=== PATIENT | male | born 1940 | race Caucasian/White ===

== ENCOUNTER 2018-11-12 14:40 | Observation (INO) ==
--- NOTE | 2018-11-12 14:59 | Emergency Department Note ---
Disposition Clinical Impression: Severe anemia, Acquired thrombocytopenia Disposition: Admitted As Inpatient Condition: Fair Forms: ED Satisfaction Letter, Work/School Release Recheck wound or abnormal lab - General Chief Complaint: ED General Medical Stated Complaint: needs blood redrawn Time Seen by Provider: 11/12/18 14:55 Source: patient Mode of arrival: private vehicle Limitations: physical limitation - History of Present Illness HPI Narrative: Patient was seen yesterday for persistent nose bleeding for which she ended up receiving transfusion of platelets as well as nasal packing with TXA on a Rhino Rocket. He tolerated this well and had a repeat lab draw today that showed his hemoglobin to a dropped from 7.1-5.9. His platelets have increased only moderately from 19-27 and his white count is gone from 1.6-1.4. He did have a compressive metabolic panel performed today already as well. His sodium was 1:30, BUN 40, creatinine 0.83 and glucose 259. No other significant abnormalities on his chemistries. He was advised to come to the hospital for in treatment for his lab abnormalities. On arrival here he states he did have the bad nosebleed yesterday denies any other source for blood loss. He has not had any type of GI bleeds and denies bloody or black stools. Reports some generalized weakness but no dizziness or presyncopal complaints. Denies a change in shortness of breath and states he is been short of breath since the and it is no different. Denies any chest pain or palpitations. He is not having abdominal pain or cramping. 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 He is just completed his 6 chemotherapy treatment a week ago on Monday. He has no further treatments planned. He is scheduled for close follow-up and has an MRI scheduled tomorrow at [facility]. He advises that he was told to come to this emergency department to be checked but he expects his treatment to be coordinated through [facility]. Pt Subjective Complaint: abnormal lab(s) Initial Visit (ago): hour(s) Symptoms Since Prior Visit: no new symptoms Context: called for abnormal lab result Associated symptoms: malaise - Related Data Home Medications Medication Instructions Recorded Confirmed Albuterol Sulfate [Proair Hfa] 1 puff IH PRN PRN 07/14/18 11/11/18 Allopurinol [Zyloprim] 300 mg PO DAILY 07/14/18 11/11/18 Ascorbic Acid [Vitamin C] 500 mg PO BID 07/14/18 11/11/18 Fenofibrate 60 mg PO DAILY 07/14/18 11/11/18 Fexofenadine HCl 60 mg PO BID 07/14/18 11/11/18 Fluticasone/Salmeterol [Advair 1 each IH BID 07/14/18 11/11/18 250-50 Diskus] GlipiZIDE [Glipizide Xl] 5 mg PO QID 07/14/18 11/11/18 Insulin Glargine,Hum.rec.anlog 100 unit SQ DAILY 07/14/18 11/11/18 [Basaglar Kwikpen U-100] Lisinopril [Zestril] 5 mg PO DAILY 07/14/18 11/11/18 Allergies Allergy/AdvReac Type Severity Reaction Status Date / Time lecithin, soy Allergy Gastrointestinal Unverified 11/12/18 15:28 Upset Sulfa (Sulfonamide Allergy Seizure Verified 11/12/18 15:28 Antibiotics) All systems ED: reviewed and negative except as stated. Past Medical History - Past Medical History Attestation: Yes The following information was validated with the patient. Source: patient, old records reviewed, nursing notes reviewed Medical history: Reports: asthma, cancer (Non-Hodgkin's lymphoma), cirrhosis, diabetes, hypertension, liver disease, other Surgical history: Reports: appendectomy, cholecystectomy Psychiatric history: Reports: no psych history - Social History Smoking Status: Never smoker Smokeless Tobacco Status: No Alcohol use: Reports: none Drug use: Reports: none Physical Exam - General Limitations: physical limitation General appearance: alert, in no apparent distress - Head Head exam: atraumatic, normocephalic, normal inspection - Eye Eye exam: Present: normal appearance, PERRL, EOMI - ENT ENT exam: normal exam, normal oropharynx, mucous membranes moist, other (There is no evidence for clot or blood in the nose.) - Neck Neck exam: Present: normal inspection, full ROM, trachea midline - Chest Chest inspection: Present: normal inspection, symmetric chest wall rise - Respiratory Respiratory exam: Present: normal lung sounds bilaterally. Absent: respiratory distress, wheezes, accessory muscle use - Cardiovascular Cardiovascular exam: Present: regular rate, normal rhythm, normal heart sounds - Abdominal Exam Abdominal exam: Present: soft, Non-Tender, normal bowel sounds. Absent: tenderness, distention, guarding, rebound, rigidity - Extremities Exam Extremities exam: Present: normal inspection, full ROM, normal capillary refill. Absent: tenderness, pedal edema - Expanded Lower Extremity Exam Neurovascular/Tendon exam: Present: normal capillary refill. Absent: motor deficit, sensory deficit, tendon deficit Gait: observed and normal - Back Exam Back exam: Present: normal inspection, full ROM. Absent: tenderness - Neurological Exam Neurological exam: Present: alert, oriented X3, CN II-XII intact - Psychiatric Psychiatric exam: Present: normal affect, normal mood - Skin Skin exam: Present: warm, dry, intact, pallor. Absent: diaphoresis Course Course Narrative: 1510: I have contacted to the [facility] transfer line. They reviewed the recent call history and he was advised by the nurse practitioner for the oncology service to "go to his local emergency department". They will contact one of his oncologist to help coordinate his treatment. The patient does not wish to be transferred there would like to be transfused blood products here if possible. He is insistent on the amount and type of blood products to be coordinated by [facility]. 1540: Care is discussed with the patient's oncologist at [facility]. He recommends he states here he received 2 units of packed red blood cells and a sixpack of platelets. He states they will call later this week to check in on him and coordinate his further treatment and blood tests. 1545: Patient's presentation and history are discussed with Dr. Topete. He is agreeable with observing the patient for transfusions. Verbal orders have been obtained for this purpose. Vital Signs Temperature 97.7 F 11/12/18 14:50 Pulse Rate 113 11/12/18 14:50 Respiratory Rate 18 11/12/18 14:50 Blood Pressure 86/49 11/12/18 14:50 O2 Sat by Pulse Oximetry 93 11/12/18 14:50 Temperature 97.7 F 11/12/18 14:50 Pulse Rate 113 11/12/18 14:50 Respiratory Rate 18 11/12/18 14:50 Blood Pressure 86/49 11/12/18 14:50 O2 Sat by Pulse Oximetry 93 11/12/18 14:50 Oxygen Delivery Oxygen Delivery Room Air Recheck wound or abnormal lab - Medical Records Medical records reviewed: Yes I reviewed the patient's medical records. - Lab Data Lab results reviewed: Yes I reviewed the patient's lab results. Result diagrams: 11/12/18 15:21 Lab Results 11/12/18 Range/Units 15:21 WBC 1.4 L (4.3-11.1) K/mcL RBC 1.65 L (4.19-5.50) M/mcL Hgb 5.6 L* (12.9-16.9) g/dL Hct 16.4 L (37.5-50.1) % MCV 99.4 (83.0-100.0) fL MCH 33.9 H (28.0-33.3) pg MCHC 34.1 (31.6-35.5) g/dL RDW 17.4 H (11.5-14.5) % Plt Count 26 L* (140-400) K/mcL MPV 12.6 H (9.4-12.4) fL
[2018-11-12] MEDS ORDERED: 0.9 % Sodium Chloride 1,000 ML IVC SCH (15:15)
[2018-11-12 15:30] LABS: Hematocrit 16.4 % (37.5-50.1); Lymphocytes # 0.3 K/mcL (0.6-4.6); Mean Corpuscular HGB Conc 34.1 g/dL (31.6-35.5); Mean Corpuscular Hemoglobin 33.9 pg (28.0-33.3); Mean Corpuscular Volume 99.4 fL (83.0-100.0); Mean Platelet Volume 12.6 fL (9.4-12.4); Monocytes # 0.3 K/mcL (0.0-1.3); Red Blood Count 1.65 M/mcL (4.19-5.50); Red Cell Distribution Width 17.4 % (11.5-14.5)
[2018-11-12 15:32] LABS: Hemoglobin 5.6 g/dL (12.9-16.9); Platelet Count 26 K/mcL (140-400)
[2018-11-12 16:30] LABS: Anisocytosis 1+ (Not Present); Hypochromasia Present (Not Present); Neutrophils # 0.8 K/mcL (1.6-8.9); Platelet Estimate Marked Decrease (Normal); Toxic Granulation Present (Not Present); Toxic Vacuolation Present (Not Present)
[2018-11-12 16:31] LABS: Dohle Bodies Present (Not Present)
[2018-11-12] MEDS ORDERED: *HR* Dextrose 50 % in Water (Vial) 50 ML VIAL IVP PRN (18:05)
[2018-11-12] MEDS ORDERED: Ondansetron 4 MG/2 ML VIAL IVP PRN (18:05)
[2018-11-12] MEDS ORDERED: MOM Conc 10 ML UD.LIQ PO PRN (18:05)
[2018-11-12] MEDS ORDERED: D5% in Water 1,000 ML IVC PRN (18:05)
[2018-11-12] MEDS ORDERED: Naloxone 0.4 MG/ML INJ IVP PRN (18:05)
[2018-11-12] MEDS ORDERED: Mag Hydrox/Al Hydrox/Simeth 30 ML UDC PO PRN (18:05)
[2018-11-12] MEDS ORDERED: Dextrose Gel 15 GM/37.5 ML TUBE PO PRN ×2 (18:05)
[2018-11-12] MEDS: 0.9 % Sodium Chloride 1,000 ML IVC SCH (19:03)
[2018-11-13] MEDS: 0.9 % Sodium Chloride 1,000 ML IVC SCH ×2 (04:56→16:03)
[2018-11-13 06:55] LABS: Hematocrit 18.4 % (37.5-50.1); Hemoglobin 6.2 g/dL (12.9-16.9); Mean Corpuscular HGB Conc 33.7 g/dL (31.6-35.5); Mean Corpuscular Hemoglobin 33.7 pg (28.0-33.3); Mean Platelet Volume 13.2 fL (9.4-12.4); Red Blood Count 1.84 M/mcL (4.19-5.50); Red Cell Distribution Width 17.2 % (11.5-14.5)
[2018-11-13 07:18] LABS: Platelet Count 25 K/mcL (140-400)
[2018-11-13 08:06] LABS: Lymphocytes # 0.5 K/mcL (0.6-4.6); Monocytes # 0.1 K/mcL (0.0-1.3); Neutrophils # 0.8 K/mcL (1.6-8.9)
[2018-11-13 08:07] LABS: Anisocytosis 1+ (Not Present); Platelet Estimate Marked Decrease (Normal); Toxic Vacuolation Present (Not Present)
[2018-11-13 08:08] LABS: Dohle Bodies Present (Not Present); Toxic Granulation Present (Not Present)
[2018-11-13] MEDS: Insulin LISPRO 300 UNITS/3 ML VIAL SQ SCH ×4 (08:30→17:49)
--- NOTE | 2018-11-13 10:58 | Internal Med History&Physical ---
Date of Encounter: 11/13/18 Time of Encounter: 10:05 Assessment and Plan (1) Pancytopenia due to antineoplastic chemotherapy Current visit: Yes Status: Acute He received 1 unit packed red blood cells and a sixpack of platelets through emergency room. There has been no improvement in his platelet level. He remains leukopenic and now has bandemia. I spoke with his steamer gum candy at [facility] who agrees for transfer there. (2) Non Hodgkin's lymphoma Current visit: Yes Status: Acute As per oncologist. Qualifiers: Non-Hodgkin lymphoma type: unspecified type Lymphoma site: unspecified region Qualified Code(s): C85.90 - Non-Hodgkin lymphoma, unspecified, unspecified site Internal Medicine - H&P: HPI Chief complaint: Pancytopenia, weakness Admitted From: Emergency Dept Plans for Post Hospital Care: Home History of present illness: Mr. Villarreal is a 78 year old male who was directed to come to emergency room by his [facility] oncologist to have repeat labs and possibly receives blood transfusion. Previous blood draw within the last 24 hours had shown significant pancytopenia. Labs in emergency room confirmed pancytopenia with hemoglobin 5.6, WBC 1.4, and platelet count 26,000. He was admitted to observation bed for blood transfusion and ongoing care needs. He reports being diagnosed with non-Hodgkin's lymphoma fall 2017. He has received chemotherapy with last treatment during his hospitalization ending 11/03/2018 at [facility]. He had epistaxis requiring emergency room treatment November 11 including platelet transfusion. Epistaxis has not recurred. He denies other malignancies but was diagnosed with ITP in the mid 1990s. He received Vincristine which caused peripheral neuropathy. He also received steroids and Gamimmune. Past Med Surg Social Fam HX - Past Medical History Medical history: asthma, cancer (Non-Hodgkin's lymphoma), cirrhosis, diabetes, hypertension, liver disease, other Additional medical history: non hodgikns lymphomia, ITP Psychiatric history: no psych history - Past Surgical History Surgical History: appendectomy, cholecystectomy Additional surgical history: teeth. LIVER BIOPSY. picc line for chemo - Social History Smoking Status: Never smoker Smokeless Tobacco Status: No Alcohol use: none Drug use: none Internal Medicine - H&P: Meds Albuterol Sulfate [Proair Hfa] 1 puff IH PRN PRN 07/14/18 [History] Allopurinol [Zyloprim] 300 mg PO DAILY 12/29/18 [History] Ascorbic Acid [Vitamin C] 500 mg PO BID 07/14/18 [History] Fenofibrate 60 mg PO DAILY 07/14/18 [History] Fexofenadine HCl 60 mg PO BID 07/14/18 [History] Fluticasone/Salmeterol [Advair 250-50 Diskus] 1 each IH BID 07/14/18 [History] GlipiZIDE [Glipizide Xl] 5 mg PO QID 07/14/18 [History] Insulin Glargine,Hum.rec.anlog [Basaglar Kwikpen U-100] 100 unit SQ DAILY 07/14/18 [History] Lisinopril [Zestril] 5 mg PO DAILY 07/14/18 [History] Allergy/AdvReac Type Severity Reaction Status Date / Time lecithin, soy Allergy Gastrointestinal Unverified 11/12/18 15:28 Upset Sulfa (Sulfonamide Allergy Seizure Verified 11/12/18 15:28 Antibiotics) All Systems PM: A 10-system review of systems was performed and is negative for pertinent findings except as documented above in the HPI. Review of systems: Gen.: He states his weight has decreased approximately 35 pounds in the past year Cardiovascular: He has history of hypertension but denies DE heart failure angina DVT or pulmonary embolus Respiratory: He smoked briefly during high school. He denies chronic lung disease and does not use home oxygen. He has had negative TORITO workup. He reports narcolepsy but does not presently take medication for this. GI: He had cholecystectomy several years ago. He has diagnosis of cirrhosis but denies other disorders of his liver or exocrine pancreas : He has had multiple kidney stones with most recent one several years ago. He denies other kidney bladder prostate disorders. Neurologic: He has peripheral neuropathy as per history of present illness. He states he was told he possibly had a mild stroke earlier this year but has no residual neurologic deficits. He denies seizures. Endocrine: He was diagnosed with DM 2 in 1998. Hemoglobin A1c was 6.0% on 09/13/2018. He has hypothyroidism but denies hyperlipidemia Hematology/oncology: As per history of present illness Psychiatric: He had suicidal ideations at age 17. He denies ongoing mental health diagnoses. [place] skeletal: He has history of gout. He denies other bone joint or muscle d isorders. - Constitutional Vitals: Temp Pulse Resp BP Pulse Ox 98.5 F 94 16 90/56 96 11/13/18 07:39 11/13/18 07:39 11/13/18 07:39 11/13/18 07:39 11/13/18 07:39 Exam: Gen.: He is a well-developed well-nourished male who appears pale but in no acute distress HEENT: Head is atraumatic and normocephalic. Eyes: EOMI. There is no scleral icterus. Mouth: Mucosa is moist. Neck: There is no thyromegaly or adenopathy noted. Heart: Regular with a 2/6 systolic murmur heard at the left sternal border radiating toward the axilla. Rate is approximately 104/m. Lungs: No wheezes or crackles are heard. Abdomen: G-tube is in place in the epigastric area. Abdomen is nontender to palpation. Exam is limited because he is in the seated position. Extremities: He has chronic venous stasis pigmentation changes of his lower legs from the upper calf to his feet. Dorsalis pedis and posttibial pulses are not palpable. 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 Neurologic: Mental status: He is talkative and a good historian. Cranial nerves: Smile is symmetric. Forehead wrinkles bilaterally. Tongue protrudes midline. EOMI. Motor: There is no pronator drift. Cerebellar: Finger to nose is intact bilaterally. Skin: Warm and dry Internal Med - H&P Results - Labs CBC & Chem 7: 11/13/18 06:00 Labs: Short CBC 11/12/18 11/13/18 Range/Units 15:21 06:00 WBC 1.4 L 1.4 L (4.3-11.1) K/mcL Hgb 5.6 L* 6.2 L (12.9-16.9) g/dL Hct 16.4 L 18.4 L (37.5-50.1) % Plt Count 26 L* 25 L* (140-400) K/mcL Neutrophils # 0.8 L 0.8 L (1.6-8.9) K/mcL
--- NOTE | 2018-11-13 11:24 | Discharge Summary ---
Date of Encounter: 11/13/18 Time of Encounter: 10:05 - Discharge Diagnosis (1) Pancytopenia due to antineoplastic chemotherapy Priority: Primary Status: Acute (2) Non Hodgkin's lymphoma Priority: Secondary Status: Acute Qualifiers: Non-Hodgkin lymphoma type: unspecified type Lymphoma site: unspecified region Qualified Code(s): C85.90 - Non-Hodgkin lymphoma, unspecified, unspecified site Hospital course: Mr. Villarreal is a 78 year old male who was directed to come to emergency room by his [facility] oncologist to have repeat labs and possibly receives blood transfusion. Previous blood draw within the last 24 hours had shown significant pancytopenia. Labs in emergency room confirmed pancytopenia with hemoglobin 5.6, WBC 1.4, and platelet count 26,000. He was admitted to observation bed for blood transfusion and ongoing care needs. Initial orders were written by the emergency room physician. I saw him on November 13 and performed the history and physical. Follow-up labs November 13 showed persistent leukopenia with WBC 1.4. There was 12% bandemia. Hemoglobin manav to 6.2 after 1 unit of packed red blood cells transfusion. I discussed his case with his building operator at [facility] and it was agreed he would be transferred to [facility] for ongoing care needs. - Time Spent with Patient Total time spent providing and/or coordinating discharge services: - Discharge Medications Prescriptions: No Action Albuterol Sulfate [Proair Hfa] 1 puff IH PRN PRN PRN Reason: Shortness Of Breath Lisinopril [Zestril] 5 mg PO DAILY GlipiZIDE [Glipizide Xl] 5 mg PO QID Fexofenadine HCl 60 mg PO BID Fenofibrate 60 mg PO DAILY Allopurinol [Zyloprim] 300 mg PO DAILY Fluticasone/Salmeterol [Advair 250-50 Diskus] 1 each IH BID Ascorbic Acid [Vitamin C] 500 mg PO BID Insulin Glargine,Hum.rec.anlog [Torey Johnson U-100] 100 unit SQ DAILY Home Medications: Albuterol Sulfate [Proair Hfa] 1 puff IH PRN PRN 07/14/18 [History] Allopurinol [Zyloprim] 300 mg PO DAILY 07/14/18 [History] Ascorbic Acid [Vitamin C] 500 mg PO BID 12/29/18 [History] Fenofibrate 60 mg PO DAILY 07/14/18 [History] Fexofenadine HCl 60 mg PO BID 07/14/18 [History] Fluticasone/Salmeterol [Advair 250-50 Diskus] 1 each IH BID 07/14/18 [History] GlipiZIDE [Glipizide Xl] 5 mg PO QID 07/14/18 [History] Insulin Glargine,Hum.rec.anlog [Basaglar Kwikpen U-100] 100 unit SQ DAILY 07/14/18 [History] Lisinopril [Zestril] 5 mg PO DAILY 07/14/18 [History] Allergies/Adverse Reactions: Allergy/AdvReac Type Severity Reaction Status Date / Time lecithin, soy Allergy Gastrointestinal Unverified 11/12/18 15:28 Upset Sulfa (Sulfonamide Allergy Seizure Verified 11/12/18 15:28 Antibiotics) Date of admission: 11/12/18 16:06 Primary care physician: Jaime Perkins DO - Constitutional Vitals: Temp Pulse Resp BP Pulse Ox 98.5 F 94 16 90/56 96 11/13/18 07:39 11/13/18 07:39 11/13/18 07:39 11/13/18 07:39 11/13/18 07:39 - Patient Status Disposition: Transfer Other Condition: Fair - Discharge Instructions
[2018-11-13 20:44] VITALS: BP 91/67
== END 2018-11-13 21:35 | disposition other institution (70) ==
LOC: EMEROOPIK 14:40 → INPPIK 14:40
PROVIDERS: ADMIT Internal Medicine; ATTEND Internal Medicine

== ENCOUNTER 2022-01-05 10:35 | Inpatient (IN) ==
[2022-01-05 12:16] LABS: Basophils % 0.3 %; Eosinophils # 0.1 K/mcL (0.0-0.6); Eosinophils % 2.3 %; Hematocrit 26.8 % (37.5-50.1); Hemoglobin 9.1 g/dL (12.9-16.9); Immature Granulocytes % 0.6 % (0-4); Lymphocytes # 0.6 K/mcL (0.6-4.6); Lymphocytes % 16.4 %; Mean Corpuscular Hemoglobin 37.9 pg (28.0-33.3); Mean Corpuscular Volume 111.7 fL (83.0-100.0); Mean Platelet Volume 10.5 fL (9.4-12.4); Monocytes # 0.4 K/mcL (0.0-1.3); Red Cell Distribution Width 15.2 % (11.5-14.5); Segmented Neutrophils % 69.4 %; White Blood Count 3.5 K/mcL (4.3-11.1)
[2022-01-05 12:20] LABS: Neutrophils # 2.4 K/mcL (1.6-8.9); Platelet Count 96 K/mcL (140-400)
[2022-01-05 12:32] LABS: INR 1.2
[2022-01-05 12:32] LABS: Bilirubin,Urine Negative (Negative); Blood,Urine Negative (Negative); Clarity,Urine Clear (Clear); Color,Urine Yellow (Yellow); Glucose,Urine (UA) Normal (Normal); Ketones,Urine Negative (Negative); Leukocyte Esterase,Urine Negative (Negative); Nitrite,Urine Negative (Negative); PH,Urine 5.5 pH Units (5.0-8.0); Protein,Urine Negative (Neg-Trace); Urobilinogen,Urine Normal (Normal)
[2022-01-05 12:40] LABS: Alanine Aminotransferase 14 Units/L (7-52); Albumin/Globulin Ratio 1.2 (1.1-2.2); Alkaline Phosphatase 89 Units/L (34-104); Aspartate Amino Transferase 26 Units/L (13-39); BUN/Creatinine Ratio 21 (6-26); Bilirubin,Total 0.7 mg/dL (0.3-1.0); Blood Urea Nitrogen 18 mg/dL (8-23); Calcium 9.7 mg/dL (8.6-10.3); Carbon Dioxide 24 mEq/L (23-29); Chloride 106 mEq/L (98-107); Globulin 3.4 g/dL (2.4-3.5); Glucose 171 mg/dL (70-105); Osmolality,Calculated 292 (280-300); Potassium 3.8 mEq/L (3.5-5.1); Sodium 138 mEq/L (136-145); Total Protein 7.4 g/dL (6.4-8.9); eGFR For African Americans > 60 (> 60); eGFR For Non-African Americans > 60 (> 60)
[2022-01-05 12:54] LABS: Macrocytosis Present (Not Present); Platelet Estimate Decreased (Normal); Poikilocytosis 1+ (Not Present); Tear Drop Cells 1+ (Not Present)
[2022-01-05] MEDS ORDERED: Ondansetron 4 MG/2 ML VIAL IVP PRN (14:01)
[2022-01-05] MEDS ORDERED: Naloxone 0.4 MG/ML INJ IVP PRN (14:01)
[2022-01-05] MEDS ORDERED: *HR* Dextrose 50 % in Water (Syg) 50 ML SYRINGE IVP PRN (14:01)
[2022-01-05] MEDS ORDERED: D5% in Water 1,000 ML IVC PRN (14:01)
[2022-01-05] MEDS ORDERED: Dextrose Gel 15 GM/37.5 ML TUBE PO PRN ×2 (14:01)
[2022-01-05] MEDS: Insulin LISPRO 300 UNITS/3 ML VIAL SUBQ SCH ×2 (17:33→21:17)
[2022-01-05] MEDS ORDERED: Eucerin Cream 57 GM TUBE TP PRN (19:05)
[2022-01-05] MEDS: Budesonide/Formoterol 160/4.5 1 PUFF INH IH SCH (21:09)
[2022-01-06] MEDS: Levothyroxine 25 MCG TABLET PO SCH (06:10)
[2022-01-06 07:04] LABS: Hemoglobin 8.7 g/dL (12.9-16.9); Mean Corpuscular HGB Conc 34.8 g/dL (31.6-35.5); Mean Corpuscular Hemoglobin 38.3 pg (28.0-33.3); Mean Corpuscular Volume 110.1 fL (83.0-100.0); Mean Platelet Volume 11.5 fL (9.4-12.4); Red Blood Count 2.27 M/mcL (4.19-5.50); Red Cell Distribution Width 14.8 % (11.5-14.5); White Blood Count 2.7 K/mcL (4.3-11.1)
[2022-01-06 07:06] LABS: Platelet Count 95 K/mcL (140-400)
[2022-01-06 07:20] LABS: BUN/Creatinine Ratio 19 (6-26); Blood Urea Nitrogen 15 mg/dL (8-23); Calcium 9.5 mg/dL (8.6-10.3); Carbon Dioxide 22 mEq/L (23-29); Chloride 105 mEq/L (98-107); Glucose 127 mg/dL (70-105); Osmolality,Calculated 284 (280-300); Sodium 136 mEq/L (136-145); eGFR For African Americans > 60 (> 60); eGFR For Non-African Americans > 60 (> 60)
[2022-01-06] MEDS: Insulin LISPRO 300 UNITS/3 ML VIAL SUBQ SCH ×4 (07:30→22:02)
[2022-01-06] MEDS: Budesonide/Formoterol 160/4.5 1 PUFF INH IH SCH ×2 (08:37→21:43)
[2022-01-06] MEDS: valACYclovir 500 MG TABLET PO SCH (09:31)
[2022-01-06] MEDS: Fenofibrate 54 MG TABLET PO SCH (09:31)
[2022-01-06] MEDS: Loratadine 10 MG TABLET PO SCH (09:32)
[2022-01-06] MEDS: allopurinoL 300 MG TABLET PO SCH (09:32)
[2022-01-07] MEDS: *HR* Enoxaparin 30 MG/0.3 ML SYRINGE SQ SCH (06:09)
[2022-01-07] MEDS: Levothyroxine 25 MCG TABLET PO SCH (06:10)
[2022-01-07] MEDS: Insulin LISPRO 300 UNITS/3 ML VIAL SUBQ SCH ×4 (07:33→21:27)
[2022-01-07] MEDS: valACYclovir 500 MG TABLET PO SCH (08:24)
[2022-01-07] MEDS: Fenofibrate 54 MG TABLET PO SCH (08:24)
[2022-01-07] MEDS: allopurinoL 300 MG TABLET PO SCH (08:24)
[2022-01-07] MEDS: Loratadine 10 MG TABLET PO SCH (08:24)
[2022-01-07] MEDS: Acetaminophen 325 MG TABLET PO PRN (08:31)
[2022-01-07] MEDS: Budesonide/Formoterol 160/4.5 1 PUFF INH IH SCH ×2 (08:38→21:59)
[2022-01-07] MEDS ORDERED: tiZANidine 4 MG TABLET PO PRN (14:01)
[2022-01-08] MEDS: *HR* HYDROcodone/Acet 5/325 mg TABLET PO PRN ×2 (00:03→09:29)
[2022-01-08] MEDS: *HR* Enoxaparin 30 MG/0.3 ML SYRINGE SQ SCH (06:10)
[2022-01-08] MEDS: Levothyroxine 25 MCG TABLET PO SCH (06:10)
[2022-01-08] MEDS: Insulin LISPRO 300 UNITS/3 ML VIAL SUBQ SCH ×4 (07:29→19:43)
[2022-01-08] MEDS: Budesonide/Formoterol 160/4.5 1 PUFF INH IH SCH ×2 (08:11→20:54)
[2022-01-08] MEDS: allopurinoL 300 MG TABLET PO SCH (08:14)
[2022-01-08] MEDS: Fenofibrate 54 MG TABLET PO SCH (08:14)
[2022-01-08] MEDS: valACYclovir 500 MG TABLET PO SCH (08:15)
[2022-01-08] MEDS: Loratadine 10 MG TABLET PO SCH (08:15)
[2022-01-08 08:17] LABS: Hematocrit 25.8 % (37.5-50.1); Hemoglobin 8.9 g/dL (12.9-16.9); Mean Corpuscular HGB Conc 34.5 g/dL (31.6-35.5); Mean Corpuscular Hemoglobin 37.9 pg (28.0-33.3); Mean Corpuscular Volume 109.8 fL (83.0-100.0); Mean Platelet Volume 11.6 fL (9.4-12.4); Red Blood Count 2.35 M/mcL (4.19-5.50); Red Cell Distribution Width 14.6 % (11.5-14.5); White Blood Count 2.3 K/mcL (4.3-11.1)
[2022-01-08 08:35] LABS: Platelet Count 84 K/mcL (140-400)
[2022-01-08 08:42] LABS: Calcium 9.2 mg/dL (8.6-10.3); Potassium 4.2 mEq/L (3.5-5.1)
[2022-01-08] MEDS: Acetaminophen 325 MG TABLET PO PRN (18:43)
[2022-01-08] MEDS ORDERED: Melatonin 3 MG TABLET PO PRN (22:26)
[2022-01-08 23:37] LABS: Folate 8.5 ng/mL (3.0-16.0)
[2022-01-09] MEDS: Acetaminophen 325 MG TABLET PO PRN (04:09)
[2022-01-09] MEDS: *HR* Enoxaparin 30 MG/0.3 ML SYRINGE SQ SCH (04:09)
[2022-01-09 04:54] VITALS: O2SAT 99
[2022-01-09 06:51] VITALS: BP 133/69; PULSE 72; TEMP 98.2
[2022-01-09] MEDS: Levothyroxine 25 MCG TABLET PO SCH (06:57)
[2022-01-09] MEDS: Insulin LISPRO 300 UNITS/3 ML VIAL SUBQ SCH ×3 (07:29→16:28)
[2022-01-09] MEDS: *HR* HYDROcodone/Acet 5/325 mg TABLET PO PRN (07:35)
[2022-01-09] MEDS: Loratadine 10 MG TABLET PO SCH (08:04)
[2022-01-09] MEDS: allopurinoL 300 MG TABLET PO SCH (08:04)
[2022-01-09] MEDS: Fenofibrate 54 MG TABLET PO SCH (08:05)
[2022-01-09] MEDS: valACYclovir 500 MG TABLET PO SCH (08:05)
[2022-01-09] MEDS: Budesonide/Formoterol 160/4.5 1 PUFF INH IH SCH (08:44)
[2022-01-09 08:47] VITALS: RESP 18
[2022-01-09 14:05] LABS: BUN/Creatinine Ratio 26 (6-26); Blood Urea Nitrogen 33 mg/dL (8-23); Carbon Dioxide 24 mEq/L (23-29); Chloride 101 mEq/L (98-107); Glucose 159 mg/dL (70-105); Osmolality,Calculated 287 (280-300); Potassium 3.8 mEq/L (3.5-5.1); Sodium 133 mEq/L (136-145); eGFR For African Americans > 60 (> 60); eGFR For Non-African Americans 53 (> 60)
[2022-01-09] MEDS ORDERED: Eucerin Cream 57 GM TUBE TP SCH (14:45)
== END 2022-01-09 17:00 | disposition other institution (70) | DRG 536 ==
LOC: EMEROOPIK 10:35 → INPPIK 10:35
PROVIDERS: ADMIT Nurse Practitioner Family; ATTEND Nurse Practitioner Family

== ENCOUNTER 2022-01-07 13:41 | Inpatient (IN) ==
[2022-01-09] MEDS ORDERED: Dextrose Gel 15 GM/37.5 ML TUBE PO PRN ×2 (14:21)
[2022-01-09] MEDS ORDERED: D5% in Water 1,000 ML IVC PRN (14:21)
[2022-01-09] MEDS ORDERED: *HR* Dextrose 50 % in Water (Syg) 50 ML SYRINGE IVP PRN (14:21)
[2022-01-09] MEDS: Insulin LISPRO 300 UNITS/3 ML VIAL SUBQ SCH ×2 (18:29→21:29)
[2022-01-09] MEDS: *HR* HYDROcodone/Acet 5/325 mg TABLET PO PRN (18:46)
[2022-01-09] MEDS: Budesonide/Formoterol 160/4.5 1 PUFF INH IH SCH (21:08)
[2022-01-09] MEDS: Ascorbic Acid 500 MG TABLET PO SCH (21:46)
[2022-01-09] MEDS: Eucerin Cream 57 GM TUBE TP SCH (21:46)
[2022-01-10 05:17] LABS: Basophils % 0.9 %; Eosinophils # 0.1 K/mcL (0.0-0.6); Eosinophils % 5.6 %; Hematocrit 26.3 % (37.5-50.1); Hemoglobin 9.3 g/dL (12.9-16.9); Immature Granulocytes % 0.9 % (0-4); Lymphocytes % 25.7 %; Mean Corpuscular HGB Conc 35.4 g/dL (31.6-35.5); Mean Corpuscular Hemoglobin 38.3 pg (28.0-33.3); Mean Corpuscular Volume 108.2 fL (83.0-100.0); Mean Platelet Volume 11.4 fL (9.4-12.4); Monocytes # 0.3 K/mcL (0.0-1.3); Monocytes % 11.7 %; Neutrophils # 1.2 K/mcL (1.6-8.9); Platelet Count 112 K/mcL (140-400); Red Blood Count 2.43 M/mcL (4.19-5.50); Red Cell Distribution Width 14.1 % (11.5-14.5); Segmented Neutrophils % 55.2 %; White Blood Count 2.1 K/mcL (4.3-11.1)
[2022-01-10 05:21] LABS: Lymphocytes # 0.5 K/mcL (0.6-4.6)
[2022-01-10 05:36] LABS: BUN/Creatinine Ratio 31 (6-26); Blood Urea Nitrogen 30 mg/dL (8-23); Calcium 9.6 mg/dL (8.6-10.3); Carbon Dioxide 25 mEq/L (23-29); Chloride 104 mEq/L (98-107); Glucose 135 mg/dL (70-105); Osmolality,Calculated 290 (280-300); Potassium 4.2 mEq/L (3.5-5.1); Sodium 136 mEq/L (136-145); eGFR For African Americans > 60 (> 60); eGFR For Non-African Americans > 60 (> 60)
[2022-01-10] MEDS: Acetaminophen 325 MG TABLET PO PRN ×2 (06:16→20:48)
[2022-01-10] MEDS: Levothyroxine 25 MCG TABLET PO SCH (06:16)
[2022-01-10] MEDS ORDERED: *HR* Enoxaparin 30 MG/0.3 ML SYRINGE SQ SCH ×2 (07:00→19:34)
[2022-01-10] MEDS: Insulin LISPRO 300 UNITS/3 ML VIAL SUBQ SCH ×4 (08:07→20:42)
[2022-01-10] MEDS: Budesonide/Formoterol 160/4.5 1 PUFF INH IH SCH ×2 (09:00→20:37)
[2022-01-10] MEDS: Ascorbic Acid 500 MG TABLET PO SCH ×2 (10:19→20:48)
[2022-01-10] MEDS: allopurinoL 300 MG TABLET PO SCH (10:19)
[2022-01-10] MEDS: Loratadine 10 MG TABLET PO SCH (10:19)
[2022-01-10] MEDS: valACYclovir 500 MG TABLET PO SCH (10:19)
[2022-01-10] MEDS: Fenofibrate 54 MG TABLET PO SCH (10:20)
[2022-01-10] MEDS: Eucerin Cream 57 GM TUBE TP SCH ×2 (10:21→20:49)
[2022-01-11] MEDS: Levothyroxine 25 MCG TABLET PO SCH (05:04)
[2022-01-11 06:01] LABS: Basophils % 0.9 %; Eosinophils # 0.1 K/mcL (0.0-0.6); Eosinophils % 4.7 %; Hematocrit 25.8 % (37.5-50.1); Hemoglobin 9.2 g/dL (12.9-16.9); Immature Granulocytes % 0.4 % (0-4); Lymphocytes # 0.6 K/mcL (0.6-4.6); Lymphocytes % 26.1 %; Mean Corpuscular HGB Conc 35.7 g/dL (31.6-35.5); Mean Corpuscular Hemoglobin 38.3 pg (28.0-33.3); Mean Corpuscular Volume 107.5 fL (83.0-100.0); Mean Platelet Volume 11.1 fL (9.4-12.4); Monocytes # 0.3 K/mcL (0.0-1.3); Monocytes % 11.1 %; Neutrophils # 1.3 K/mcL (1.6-8.9); Platelet Count 117 K/mcL (140-400); Red Cell Distribution Width 13.8 % (11.5-14.5); Segmented Neutrophils % 56.8 %; White Blood Count 2.3 K/mcL (4.3-11.1)
[2022-01-11 06:33] LABS: BUN/Creatinine Ratio 32 (6-26); Blood Urea Nitrogen 27 mg/dL (8-23); Calcium 9.5 mg/dL (8.6-10.3); Carbon Dioxide 25 mEq/L (23-29); Chloride 103 mEq/L (98-107); Glucose 129 mg/dL (70-105); Osmolality,Calculated 287 (280-300); Sodium 135 mEq/L (136-145); eGFR For African Americans > 60 (> 60); eGFR For Non-African Americans > 60 (> 60)
[2022-01-11 06:46] LABS: Thyroid Stimulating Hormone 0.269 mcIU/mL (0.340-5.600)
[2022-01-11] MEDS: Insulin LISPRO 300 UNITS/3 ML VIAL SUBQ SCH ×4 (07:43→20:06)
[2022-01-11] MEDS: Budesonide/Formoterol 160/4.5 1 PUFF INH IH SCH ×2 (08:46→20:59)
[2022-01-11] MEDS: *HR* Enoxaparin 40 MG/0.4 ML SYRINGE SQ SCH (09:17)
[2022-01-11] MEDS: Ascorbic Acid 500 MG TABLET PO SCH ×2 (09:22→20:10)
[2022-01-11] MEDS: Loratadine 10 MG TABLET PO SCH (09:22)
[2022-01-11] MEDS: valACYclovir 500 MG TABLET PO SCH (09:23)
[2022-01-11] MEDS: Fenofibrate 54 MG TABLET PO SCH (09:24)
[2022-01-11] MEDS: Eucerin Cream 57 GM TUBE TP SCH ×2 (09:25→20:10)
[2022-01-11] MEDS: allopurinoL 300 MG TABLET PO SCH (09:25)
[2022-01-11] MEDS: Cyanocobalamin (B-12) 1,000 MCG/ML VIAL IM SCH (09:26)
[2022-01-11] MEDS: Acetaminophen 325 MG TABLET PO PRN (15:18)
[2022-01-12] MEDS: Levothyroxine 25 MCG TABLET PO SCH (06:04)
[2022-01-12] MEDS: *HR* Enoxaparin 40 MG/0.4 ML SYRINGE SQ SCH (06:07)
[2022-01-12] MEDS: Cyanocobalamin (B-12) 1,000 MCG/ML VIAL IM SCH (09:08)
[2022-01-12] MEDS: Insulin LISPRO 300 UNITS/3 ML VIAL SUBQ SCH ×4 (09:08→21:03)
[2022-01-12] MEDS: Loratadine 10 MG TABLET PO SCH (09:08)
[2022-01-12] MEDS: allopurinoL 300 MG TABLET PO SCH (09:09)
[2022-01-12] MEDS: Fenofibrate 54 MG TABLET PO SCH (09:09)
[2022-01-12] MEDS: Ascorbic Acid 500 MG TABLET PO SCH ×2 (09:09→21:02)
[2022-01-12] MEDS: Eucerin Cream 57 GM TUBE TP SCH ×2 (09:09→21:03)
[2022-01-12] MEDS: valACYclovir 500 MG TABLET PO SCH (09:09)
[2022-01-12] MEDS: Budesonide/Formoterol 160/4.5 1 PUFF INH IH SCH ×2 (09:19→21:25)
[2022-01-13] MEDS: *HR* HYDROcodone/Acet 5/325 mg TABLET PO PRN ×2 (04:40→16:09)
[2022-01-13] MEDS: Levothyroxine 25 MCG TABLET PO SCH (05:46)
[2022-01-13] MEDS: *HR* Enoxaparin 40 MG/0.4 ML SYRINGE SQ SCH (07:37)
[2022-01-13] MEDS: allopurinoL 300 MG TABLET PO SCH (07:37)
[2022-01-13] MEDS: Fenofibrate 54 MG TABLET PO SCH (07:37)
[2022-01-13] MEDS: Cyanocobalamin (B-12) 1,000 MCG/ML VIAL IM SCH (07:37)
[2022-01-13] MEDS: Ascorbic Acid 500 MG TABLET PO SCH ×2 (07:37→21:55)
[2022-01-13] MEDS: Loratadine 10 MG TABLET PO SCH (07:38)
[2022-01-13] MEDS: Eucerin Cream 57 GM TUBE TP SCH ×2 (07:38→21:56)
[2022-01-13] MEDS: valACYclovir 500 MG TABLET PO SCH (07:38)
[2022-01-13] MEDS: Insulin LISPRO 300 UNITS/3 ML VIAL SUBQ SCH ×4 (07:46→21:55)
[2022-01-13] MEDS: Budesonide/Formoterol 160/4.5 1 PUFF INH IH SCH ×2 (10:51→19:50)
[2022-01-14] MEDS: Levothyroxine 25 MCG TABLET PO SCH (06:32)
[2022-01-14] MEDS: *HR* Enoxaparin 40 MG/0.4 ML SYRINGE SQ SCH (06:32)
[2022-01-14] MEDS: Cyanocobalamin (B-12) 1,000 MCG/ML VIAL IM SCH (08:05)
[2022-01-14] MEDS: Fenofibrate 54 MG TABLET PO SCH (08:05)
[2022-01-14] MEDS: allopurinoL 300 MG TABLET PO SCH (08:07)
[2022-01-14] MEDS: Ascorbic Acid 500 MG TABLET PO SCH ×2 (08:07→22:05)
[2022-01-14] MEDS: Eucerin Cream 57 GM TUBE TP SCH ×2 (08:07→22:06)
[2022-01-14] MEDS: Loratadine 10 MG TABLET PO SCH (08:07)
[2022-01-14] MEDS: valACYclovir 500 MG TABLET PO SCH (08:07)
[2022-01-14] MEDS: Insulin LISPRO 300 UNITS/3 ML VIAL SUBQ SCH ×4 (08:08→21:37)
[2022-01-14] MEDS: Budesonide/Formoterol 160/4.5 1 PUFF INH IH SCH ×2 (09:44→21:46)
[2022-01-14] MEDS: Acetaminophen 325 MG TABLET PO PRN (11:49)
[2022-01-14] MEDS: Docusate Oral Soln 100 MG/10 ML UDC PO SCH (17:51)
[2022-01-15] MEDS: Acetaminophen 325 MG TABLET PO PRN ×2 (02:06→16:56)
[2022-01-15] MEDS: *HR* Enoxaparin 40 MG/0.4 ML SYRINGE SQ SCH (05:51)
[2022-01-15] MEDS: Levothyroxine 25 MCG TABLET PO SCH (05:51)
[2022-01-15] MEDS: Loratadine 10 MG TABLET PO SCH (08:59)
[2022-01-15] MEDS: valACYclovir 500 MG TABLET PO SCH (08:59)
[2022-01-15] MEDS: Ascorbic Acid 500 MG TABLET PO SCH ×2 (08:59→21:03)
[2022-01-15] MEDS: Fenofibrate 54 MG TABLET PO SCH (08:59)
[2022-01-15] MEDS: allopurinoL 300 MG TABLET PO SCH (08:59)
[2022-01-15] MEDS: Cyanocobalamin (B-12) 1,000 MCG/ML VIAL IM SCH (09:00)
[2022-01-15] MEDS: Insulin LISPRO 300 UNITS/3 ML VIAL SUBQ SCH ×4 (09:01→21:01)
[2022-01-15] MEDS: Eucerin Cream 57 GM TUBE TP SCH ×2 (09:02→21:00)
[2022-01-15] MEDS: Budesonide/Formoterol 160/4.5 1 PUFF INH IH SCH ×2 (09:07→21:07)
[2022-01-15] MEDS: Docusate Oral Soln 100 MG/10 ML UDC PO SCH (10:07)
[2022-01-16] MEDS: Levothyroxine 25 MCG TABLET PO SCH (06:19)
[2022-01-16] MEDS: *HR* Enoxaparin 40 MG/0.4 ML SYRINGE SQ SCH (06:20)
[2022-01-16] MEDS: Insulin LISPRO 300 UNITS/3 ML VIAL SUBQ SCH ×4 (07:57→20:26)
[2022-01-16] MEDS: Fenofibrate 54 MG TABLET PO SCH (08:04)
[2022-01-16] MEDS: allopurinoL 300 MG TABLET PO SCH (08:04)
[2022-01-16] MEDS: Ascorbic Acid 500 MG TABLET PO SCH ×2 (08:04→20:27)
[2022-01-16] MEDS: Loratadine 10 MG TABLET PO SCH (08:04)
[2022-01-16] MEDS: valACYclovir 500 MG TABLET PO SCH (08:04)
[2022-01-16] MEDS: Cyanocobalamin (B-12) 1,000 MCG/ML VIAL IM SCH (08:05)
[2022-01-16] MEDS: Docusate Oral Soln 100 MG/10 ML UDC PO SCH (08:05)
[2022-01-16] MEDS: Eucerin Cream 57 GM TUBE TP SCH ×2 (08:06→20:32)
[2022-01-16] MEDS: Budesonide/Formoterol 160/4.5 1 PUFF INH IH SCH ×2 (08:54→20:35)
[2022-01-16 09:36] LABS: Hematocrit 27.1 % (37.5-50.1); Hemoglobin 9.4 g/dL (12.9-16.9); Mean Corpuscular HGB Conc 34.7 g/dL (31.6-35.5); Mean Corpuscular Hemoglobin 37.8 pg (28.0-33.3); Mean Corpuscular Volume 108.8 fL (83.0-100.0); Mean Platelet Volume 10.6 fL (9.4-12.4); Platelet Count 134 K/mcL (140-400); Red Blood Count 2.49 M/mcL (4.19-5.50); Red Cell Distribution Width 13.8 % (11.5-14.5); White Blood Count 2.8 K/mcL (4.3-11.1)
[2022-01-16 09:52] LABS: BUN/Creatinine Ratio 35 (6-26); Blood Urea Nitrogen 29 mg/dL (8-23); Calcium 9.5 mg/dL (8.6-10.3); Carbon Dioxide 25 mEq/L (23-29); Chloride 100 mEq/L (98-107); Glucose 180 mg/dL (70-105); Osmolality,Calculated 286 (280-300); Potassium 3.8 mEq/L (3.5-5.1); Sodium 133 mEq/L (136-145); eGFR For African Americans > 60 (> 60); eGFR For Non-African Americans > 60 (> 60)
[2022-01-16] MEDS: Acetaminophen 325 MG TABLET PO PRN (15:42)
[2022-01-17] MEDS: *HR* Enoxaparin 40 MG/0.4 ML SYRINGE SQ SCH (05:25)
[2022-01-17] MEDS: Levothyroxine 25 MCG TABLET PO SCH (05:26)
[2022-01-17] MEDS: Budesonide/Formoterol 160/4.5 1 PUFF INH IH SCH ×2 (07:46→21:37)
[2022-01-17] MEDS: allopurinoL 300 MG TABLET PO SCH (07:56)
[2022-01-17] MEDS: valACYclovir 500 MG TABLET PO SCH (07:56)
[2022-01-17] MEDS: Fenofibrate 54 MG TABLET PO SCH (07:56)
[2022-01-17] MEDS: Loratadine 10 MG TABLET PO SCH (07:56)
[2022-01-17] MEDS: Cyanocobalamin (B-12) 1,000 MCG/ML VIAL IM SCH (07:57)
[2022-01-17] MEDS: Ascorbic Acid 500 MG TABLET PO SCH ×2 (07:57→21:44)
[2022-01-17] MEDS: Insulin LISPRO 300 UNITS/3 ML VIAL SUBQ SCH ×4 (07:58→21:45)
[2022-01-17] MEDS: Docusate Oral Soln 100 MG/10 ML UDC PO SCH (07:58)
[2022-01-17] MEDS: Eucerin Cream 57 GM TUBE TP SCH ×2 (07:58→21:46)
[2022-01-17] MEDS: Acetaminophen 325 MG TABLET PO PRN (16:38)
[2022-01-18] MEDS: Levothyroxine 25 MCG TABLET PO SCH (06:33)
[2022-01-18] MEDS: *HR* Enoxaparin 40 MG/0.4 ML SYRINGE SQ SCH (06:33)
[2022-01-18] MEDS: Insulin LISPRO 300 UNITS/3 ML VIAL SUBQ SCH ×4 (07:48→21:31)
[2022-01-18] MEDS: Docusate Oral Soln 100 MG/10 ML UDC PO SCH (08:48)
[2022-01-18] MEDS: valACYclovir 500 MG TABLET PO SCH (08:48)
[2022-01-18] MEDS: Loratadine 10 MG TABLET PO SCH (08:49)
[2022-01-18] MEDS: Ascorbic Acid 500 MG TABLET PO SCH ×2 (08:49→21:30)
[2022-01-18] MEDS: allopurinoL 300 MG TABLET PO SCH (08:49)
[2022-01-18] MEDS: Eucerin Cream 57 GM TUBE TP SCH ×2 (08:49→21:31)
[2022-01-18] MEDS: Fenofibrate 54 MG TABLET PO SCH (08:49)
[2022-01-18] MEDS ORDERED: Cyanocobalamin (B-12) 1,000 MCG/ML VIAL IM SCH (09:00)
[2022-01-18] MEDS: Budesonide/Formoterol 160/4.5 1 PUFF INH IH SCH ×2 (09:16→21:49)
[2022-01-19] MEDS: Acetaminophen 325 MG TABLET PO PRN (01:38)
[2022-01-19] MEDS: *HR* HYDROcodone/Acet 5/325 mg TABLET PO PRN ×2 (03:04→10:43)
[2022-01-19] MEDS: Levothyroxine 25 MCG TABLET PO SCH (05:49)
[2022-01-19] MEDS: *HR* Enoxaparin 40 MG/0.4 ML SYRINGE SQ SCH (05:50)
[2022-01-19] MEDS: Loratadine 10 MG TABLET PO SCH (08:10)
[2022-01-19] MEDS: Fenofibrate 54 MG TABLET PO SCH (08:10)
[2022-01-19] MEDS: valACYclovir 500 MG TABLET PO SCH (08:11)
[2022-01-19] MEDS: allopurinoL 300 MG TABLET PO SCH (08:11)
[2022-01-19] MEDS: Insulin LISPRO 300 UNITS/3 ML VIAL SUBQ SCH ×4 (08:11→21:11)
[2022-01-19] MEDS: Ascorbic Acid 500 MG TABLET PO SCH ×2 (08:11→21:10)
[2022-01-19] MEDS: Eucerin Cream 57 GM TUBE TP SCH ×2 (08:12→21:11)
[2022-01-19] MEDS: Budesonide/Formoterol 160/4.5 1 PUFF INH IH SCH ×2 (08:54→20:41)
[2022-01-20] MEDS: Levothyroxine 25 MCG TABLET PO SCH (06:05)
[2022-01-20] MEDS: *HR* Enoxaparin 40 MG/0.4 ML SYRINGE SQ SCH (06:05)
[2022-01-20] MEDS: Insulin LISPRO 300 UNITS/3 ML VIAL SUBQ SCH ×4 (07:41→21:54)
[2022-01-20] MEDS: Budesonide/Formoterol 160/4.5 1 PUFF INH IH SCH ×2 (09:20→21:39)
[2022-01-20] MEDS: Fenofibrate 54 MG TABLET PO SCH (09:45)
[2022-01-20] MEDS: Loratadine 10 MG TABLET PO SCH (09:45)
[2022-01-20] MEDS: allopurinoL 300 MG TABLET PO SCH (09:45)
[2022-01-20] MEDS: valACYclovir 500 MG TABLET PO SCH (09:45)
[2022-01-20] MEDS: Ascorbic Acid 500 MG TABLET PO SCH ×2 (09:45→21:47)
[2022-01-20] MEDS: Eucerin Cream 57 GM TUBE TP SCH ×2 (09:46→21:50)
[2022-01-21] MEDS: Levothyroxine 25 MCG TABLET PO SCH (06:16)
[2022-01-21] MEDS: *HR* Enoxaparin 40 MG/0.4 ML SYRINGE SQ SCH (06:16)
[2022-01-21] MEDS: Insulin LISPRO 300 UNITS/3 ML VIAL SUBQ SCH ×4 (07:20→21:35)
[2022-01-21] MEDS: Budesonide/Formoterol 160/4.5 1 PUFF INH IH SCH ×2 (08:05→21:43)
[2022-01-21] MEDS: allopurinoL 300 MG TABLET PO SCH (09:55)
[2022-01-21] MEDS: valACYclovir 500 MG TABLET PO SCH (09:55)
[2022-01-21] MEDS: Fenofibrate 54 MG TABLET PO SCH (09:55)
[2022-01-21] MEDS: Eucerin Cream 57 GM TUBE TP SCH ×2 (09:56→21:34)
[2022-01-21] MEDS: Ascorbic Acid 500 MG TABLET PO SCH ×2 (09:56→21:33)
[2022-01-21] MEDS: Loratadine 10 MG TABLET PO SCH (09:56)
[2022-01-21 19:13] VITALS: RESP 16
[2022-01-22] MEDS: Levothyroxine 25 MCG TABLET PO SCH (05:47)
[2022-01-22] MEDS: *HR* Enoxaparin 40 MG/0.4 ML SYRINGE SQ SCH (05:47)
[2022-01-22 06:03] VITALS: BP 119/66; PULSE 76; TEMP 98.2
[2022-01-22] MEDS: Ascorbic Acid 500 MG TABLET PO SCH (07:42)
[2022-01-22] MEDS: Loratadine 10 MG TABLET PO SCH (07:42)
[2022-01-22] MEDS: Fenofibrate 54 MG TABLET PO SCH (07:43)
[2022-01-22] MEDS: valACYclovir 500 MG TABLET PO SCH (07:43)
[2022-01-22] MEDS: allopurinoL 300 MG TABLET PO SCH (07:43)
[2022-01-22] MEDS: Insulin LISPRO 300 UNITS/3 ML VIAL SUBQ SCH ×2 (07:43→13:15)
[2022-01-22] MEDS: Eucerin Cream 57 GM TUBE TP SCH (07:43)
[2022-01-22] MEDS: Budesonide/Formoterol 160/4.5 1 PUFF INH IH SCH (08:34)
[2022-01-22 08:36] VITALS: O2SAT 99
== END 2022-01-22 13:40 | disposition home health service (06) | DRG 560 ==
LOC: INPPIK 01-09 18:19
PROVIDERS: ADMIT Family Medicine; ATTEND Family Medicine